=== PATIENT | male | born 1965 | race African-American/Black ===

== ENCOUNTER 2023-05-27 13:15 | Inpatient (IN) | payer SELFPAY ==
[2023-05-27] VITALS (7 sets, daily range): BP systolic 132–151; BP diastolic 81–88; PULSE 70–82; TEMP 97.9–98.3
[~2023-05-27] VITALS: Ht 175.3 cm; Wt 72.7 kg
[2023-05-27 14:03] LABS: BASO % 0.4 % (0.0-2.0); EOS # 0.3 K/mm3 (0.0-0.7); EOS % 3.1 % (0.0-4.0); GRAN # 8.3 K/mm3 (1.4-6.5); GRAN % 79.4 % (42.2-75.2); LYMPH # 1.3 K/mm3 (1.2-3.4); LYMPH % 12.1 % (20.0-51.0); MEAN CELL VOLUME 83 fl (80.0-100.0); MEAN CORPUSCULAR HGB CONC 30 g/dl (33.0-37.0); MEAN PLATELET VOLUME 9.4 fl (7.4-10.4); MONO # 0.5 K/mm3 (0.1-0.6); MONO % 4.6 % (1.7-9.3); PLATELET COUNT 338 K/mm3 (130-400); RED BLOOD COUNT 2.63 M/mm3 (4.20-5.60); REDCELL DISTRIBUTION WIDTH-CV 15.9 % (11.5-14.5)
[2023-05-27 14:06] LABS: HEMATOCRIT 21.9 % (42.0-52.0); HEMOGLOBIN 6.6 g/dl (13.5-18.0); MEAN CORPUSCULAR HEMOGLOBIN 25 pg (27-31)
[2023-05-27 14:21] LABS: ALBUMIN 2.9 gm/dL (3.5-5.0); BILIRUBIN,TOTAL 0.4 mg/dL (0.2-1.2); C-REACTIVE PROTEIN 5.83 mg/dL (0.00-0.50); CALCIUM 7.7 mg/dL (8.4-10.2); CREATININE, serum 6.15 mg/dL (0.72-1.25); TOTAL PROTEIN 8.1 gm/dL (6.2-8.1)
[2023-05-27 14:25] LABS: POTASSIUM 6.2 mmol/L (3.5-4.5)
[2023-05-27] MEDS ORDERED: NS 1,000 ML IV ONE (14:30)
[2023-05-27 14:46] LABS: COLLECTION METHOD CLEAN CATCH
[2023-05-27 15:05] LABS: PH 5.5 (5.0-8.5); URINE APPEARANCE Cloudy (CLEAR/HAZY); URINE BLOOD 1+ (NEGATIVE); URINE COLOR YELLOW (YELLOW); URINE GLUCOSE Negative (NEGATIVE); URINE KETONE Negative (NEGATIVE); URINE NITRATE Negative (NEGATIVE); URINE PROTEIN(semi-quant) Negative (BEGATIVE); URINE UROBILINOGEN 0.2 E.U/dL (0.2-1.0)
[2023-05-27 15:06] LABS: URINE BACTERIA Moderate /hpf (NONE SEEN)
[2023-05-27] MEDS ORDERED: Patiromer 8.4 G Oral Susp **** subs to Sodium Zirconium Cyclosilicate 10 G Oral Susp PO SCH (15:19)
[2023-05-27] MEDS ORDERED: Sodium Zirconium Cyclosilicate for Oral Susp 10 GM PACKET PO SCH (15:22)
[2023-05-27] MEDS ORDERED: Dextrose 50% Water 25 GM/50 ML SYRINGE IV ONE (15:30)
[2023-05-27] MEDS ORDERED: cefTRIAXone 1 G in Water For Injection,Sterile 10 ML IV ONE (15:30)
[2023-05-27] MEDS ORDERED: Insulin Regular Human (NovoLIN R/HumuLIN R) IV ONE (15:30)
[2023-05-27] MEDS ORDERED: Sodium Bicarbonate/Water,Steri 1,150 ML IV SCH (16:00)
[2023-05-27 16:48] LABS: HIV 1/2 Antibodies Non-Reactive; HIV-1p24 Antigen Non-Reactive
[2023-05-27] MEDS ORDERED: Dextrose (Glucose) 15 GM (4 x 3.75 GM) Chewable TABLET PACK PO PRN (17:15)
[2023-05-27] MEDS ORDERED: Glucagon 1 MG VIAL IM PRN (17:15)
[2023-05-27] MEDS ORDERED: Dextrose 50% Water 25 GM/50 ML SYRINGE IV PRN (17:15)
[2023-05-27] MEDS ORDERED: Lidocaine 2% (20 MG/ML) 20 ML UROJET UR ONE (17:18)
[2023-05-27] MEDS ORDERED: Ondansetron 4 MG/2 ML VIAL IV PRN (19:00)
[2023-05-27] MEDS ORDERED: hydrALAZINE 25 MG TAB PO PRN (19:00)
[2023-05-27] MEDS ORDERED: *Potassium Replacement Protocol MC SCH (19:00)
[2023-05-27] MEDS ORDERED: Docusate Sodium 100 MG CAP PO PRN (19:00)
[2023-05-27] MEDS ORDERED: Acetaminophen 325 MG TAB PO PRN (19:00)
[2023-05-27] MEDS ORDERED: Melatonin 3 MG TAB PO PRN (19:00)
[2023-05-27] MEDS ORDERED: Insulin Aspart (NovoLOG) SQ SCH (20:00)
--- NOTE | 2023-05-27 21:53 | NUR ---
THE PATIENT IS RESTING IN BED DURING THE NURSING PHYSICAL ASSESSMENT. THE PATIENT DENIES PAIN OR DISCOMFORT. THE PATIENT HAS A EVANS WITH RED URINE NOTED. THE IS AT BEDSIDE AND BOTH THE PATIENT AND THE SPOUSE ARE ANSWERING QUESTIONS IN [place], THE PATIENT MORE THAN THE SPOUSE. AN INVENTORY CONTROL/SHIPPING RECEIVING IS AVAILABLE. BLOOD TRANSFUSION DISCUSSED AND THE PATIENT RESPONDED WITH UNDERSTANDING. THE CONSENT HAS ALREADY BEEN SIGNED WITH A DAYSHIFT NURSE. NO S/S OF DISTRESS NOTED. CALL LIGHT WITHIN REACH, BED IN LOW POSITION, PERSONAL BELONGINGS WITHIN REACH.
--- NOTE | 2023-05-27 22:05 | NUR ---
8:40 PM THE BLOOD TRANSFUSION WAS STARTED AT A RATE OF 60 ML PER HOUR. THE NURSE STAYED IN THE ROOM FOR THE FIRST 15 MINUTES THEN INCREASED THE RATE TO 150 ML PER HOUR. VITAL SIGNS STABLE AND NO S/S OF A TRANSFUSION REACTION NOTED. SODIUM BICARB IVF ON HOLD DURING THE TRANSFUSION. CALL LIGHT WITHIN REACH. S/S REVIEWED. WILL MONITOR.
[2023-05-27 22:49] LABS: HEPATITIS B SURFACE ANTIGEN Negative (Negative)
[2023-05-28] VITALS (12 sets, daily range): BP systolic 123–159; BP diastolic 75–89; PULSE 63–95; TEMP 97.6–98.3
[2023-05-28 00:44] LABS: HEMATOCRIT 26.8 % (42.0-52.0); HEMOGLOBIN 8.5 g/dl (13.5-18.0)
[2023-05-28 01:00] LABS: CALCIUM 7.2 mg/dL (8.4-10.2); CREATININE, serum 5.57 mg/dL (0.72-1.25); POTASSIUM 4.4 mmol/L (3.5-4.5)
--- NOTE | 2023-05-28 02:58 | NUR ---
LAB CALLED AT 01:03 WITH A SERUM CO2 LEVEL OF 12. GAIL COATES NOTIFIED AT 01:05. AT THIS TIME GAIL COATES WAS UPDATED ON THE PTS CURRENT POTASSIUM LEVEL OF 4.4 DOWN FROM 6.2 AND Hgb 8.5 UP FROM 6.6 AFTER 1 UNIT OF PRBCs. WILL MONITOR.
[2023-05-28 07:17] LABS: BASO % 0.3 % (0.0-2.0); EOS # 0.1 K/mm3 (0.0-0.7); GRAN # 8.4 K/mm3 (1.4-6.5); GRAN % 83.1 % (42.2-75.2); LYMPH # 1.1 K/mm3 (1.2-3.4); LYMPH % 11.3 % (20.0-51.0); MEAN CELL VOLUME 79 fl (80.0-100.0); MEAN CORPUSCULAR HGB CONC 33 g/dl (33.0-37.0); MEAN PLATELET VOLUME 9.6 fl (7.4-10.4); MONO # 0.4 K/mm3 (0.1-0.6); MONO % 3.9 % (1.7-9.3); PLATELET COUNT 399 K/mm3 (130-400); RED BLOOD COUNT 3.25 M/mm3 (4.20-5.60); REDCELL DISTRIBUTION WIDTH-CV 15.8 % (11.5-14.5)
[2023-05-28 07:20] LABS: HEMATOCRIT 25.7 % (42.0-52.0); HEMOGLOBIN 8.4 g/dl (13.5-18.0); MEAN CORPUSCULAR HEMOGLOBIN 26 pg (27-31)
[2023-05-28 07:41] LABS: ALBUMIN 2.5 gm/dL (3.5-5.0); CALCIUM 7.4 mg/dL (8.4-10.2); CREATININE, serum 5.11 mg/dL (0.72-1.25); MAGNESIUM 1.2 mg/dL (1.6-2.6); PHOSPHOROUS 5.3 mg/dL (2.3-4.7); POTASSIUM 4.9 mmol/L (3.5-4.5)
--- NOTE | 2023-05-28 08:00 | NUR ---
PT LAYING IN BED UPON ENTERING, AT BEDSIDE. ASSESSMENT DONE, MEDS GIVEN PER ORDER. RIGHT AC INT PATENT. PCT TOLD THIS NURSE THAT PT REPORTED PAIN, WHEN ASKED PT STATED THAT IT WAS DISCOMFORT FOR THE EVANS AND WOULD LIKE TYLENOL, PRN GIVEN. EVANS PATENT WITH PEACH COLORED URINE, BLOOD CLOTS AND SOME SEDIMENT NOTED. FLU SHOT GIVEN TO LEFT DELTOID, DIDNT SCAN DUE TO THROWING IN SHARPS BEFORE SCANNING. PHARMACY CALLED AND TOLD THIS NURSE THAT I COULD USE A SYRINGE IN THEMED ROOM FOR CHARTING INFORMATION. CHARGE NURSE NOTIFIED AND GAVE THIS NURSE SAME INSTRUCTIONS. PT DENIES NEEDS AT THIS TIME. BED IN LOWEST POSITION, CALL LIGHT IN REACH.
[2023-05-28] MEDS ORDERED: Influenza Virus Vaccine, Quad '23-24 (6 MOS+) 0.5 ML SYRINGE IM SCH (09:00)
--- NOTE | 2023-05-28 10:41 | NUR ---
ATTEMPTED TO CALL UROLOGY CONSULT. ON 2ND TRY ANSWERED AND TOLD THIS NURSE THAT PROVIDER IS CURRENTLY ON A CALL AND WILL CALL THIS NURSE BACK
--- NOTE | 2023-05-28 10:51 | NUR ---
UROLOGY CONSULT CALLED TO DR TA
--- NOTE | 2023-05-28 10:52 | NUR ---
[facility] CALLED TO DR CORTES. PT ON BICARB PEPPER SANCHEZ AND HOSPITALIST TOLD THIS NURSE TO CONTINUE TO MONITOR.
[2023-05-28] MEDS ORDERED: Sodium Bicarbonate/Water,Steri 1,150 ML IV SCH (11:00)
--- NOTE | 2023-05-28 12:13 | NUR ---
DR CORTES CALLED AND NOTIFIED THAT PT DOESNT HAVE AN ORDER FOR VTE CURRENTLY. HOSPITALIST GAVE THIS NURSE A VERBAL ORDER FOR "LOVENOX 40 SUBQ". THIS NURSE REPEATED ORDER AND HOSPITALIST STATES THAT THIS IS CORRECT. SHORTLY AFTER HOSPITALIST CALLED THIS NURSE AND STATED THAT HE WOULD PREFER PT HAS HEPARIN AND THE ORDER WILL BE PUT IN BY HIM. THIS NURSE VERBALIZED UNDERSTANDING
[2023-05-28] MEDS ORDERED: Heparin 5,000 UNITS/ML 1 ML VIAL SQ SCH (12:14)
[2023-05-28] MEDS ORDERED: Finasteride 5 MG TAB PO SCH (12:15)
[2023-05-28] MEDS ORDERED: cefTRIAXone 1 G in Water For Injection,Sterile 10 ML IV SCH (16:00)
--- NOTE | 2023-05-28 16:39 | NUR ---
SW met with patient to complete intake. Patient provides he lives in [place] with spouse Chelsie [phone]. Patient is independent with ADLs, does not utilize DME, and does not utilize HH services at this time. PCP is Dr. Fraga, and pharmacy is [facility]. Patient does not have anyone appointed as DPOA/HC. Patient plans to return to his home up on DC. SW will continue to follow. DC plan: home
--- NOTE | 2023-05-28 21:40 | NUR ---
Patient resting in bed with daughter at bedside. Denies any pain or needs at this time. IV in right AC infusing with no complications. Call light and personal items in reach. Bed in low position.
[2023-05-29] VITALS (12 sets, daily range): BP systolic 122–135; BP diastolic 79–86; PULSE 72–90; TEMP 97.6–98.2
--- NOTE | 2023-05-29 06:10 | NUR ---
Patient getting back in bed from bathroom. States he has pain where his catheter rating it a 5/10, PRN pain meds given. No changes over night. Call light and personal items in reach. Bed in low position and bed alarm on.
[2023-05-29] MEDS ORDERED: Insulin Aspart (NovoLOG) SQ SCH (08:00)
[2023-05-29 08:10] LABS: BASO # 0.1 K/mm3 (0.0-0.2); BASO % 0.6 % (0.0-2.0); EOS # 0.4 K/mm3 (0.0-0.7); GRAN % 66.5 % (42.2-75.2); LYMPH # 2.1 K/mm3 (1.2-3.4); LYMPH % 22.8 % (20.0-51.0); MEAN CELL VOLUME 78 fl (80.0-100.0); MEAN CORPUSCULAR HGB CONC 33 g/dl (33.0-37.0); MEAN PLATELET VOLUME 9.3 fl (7.4-10.4); MONO # 0.5 K/mm3 (0.1-0.6); MONO % 5.7 % (1.7-9.3); PLATELET COUNT 431 K/mm3 (130-400); RED BLOOD COUNT 3.55 M/mm3 (4.20-5.60); REDCELL DISTRIBUTION WIDTH-CV 15.7 % (11.5-14.5)
[2023-05-29 08:19] LABS: HEMATOCRIT 27.8 % (42.0-52.0); HEMOGLOBIN 9.2 g/dl (13.5-18.0); MEAN CORPUSCULAR HEMOGLOBIN 26 pg (27-31)
[2023-05-29 08:30] LABS: ALBUMIN 2.6 gm/dL (3.5-5.0); CALCIUM 7.1 mg/dL (8.4-10.2); CREATININE, serum 4.35 mg/dL (0.72-1.25); MAGNESIUM 1.2 mg/dL (1.6-2.6); PHOSPHOROUS 4.9 mg/dL (2.3-4.7); POTASSIUM 3.9 mmol/L (3.5-4.5)
--- NOTE | 2023-05-29 09:10 | NUR ---
PT LAYING IN BED UPON ENTERING. ASSESSMENT DONE, MEDS GIVEN PER ORDER. EVANS IN PLACE AND DRAINING PEACH COLORED URINE WITHOUT COMPLICATIONS. PT DENIES PAIN BUT REPORTS DISCOMFORT WHEN FEELING THE URGE TO URINATE. BICARB RUNNING PER ORDER IN RIGHT AC PER ORDER WITHOUT COMPLICATIONS. PT DENIES NEEDS AT THIS TIME. BED IN LOWEST POSITION, CALL LIGHT IN REACH
[2023-05-29] MEDS ORDERED: Magnesium Sulfate 4% 50 ML IV ONE (12:30)
--- NOTE | 2023-05-29 19:57 | NUR ---
REPORT GIVEN TO LORIN CARBAJAL
--- NOTE | 2023-05-29 21:40 | NUR ---
Patient resting in bed with family at bedside. Denies any pain or needs at this time. Lotion applied to legs. Assessment complete. IV in right AC flushes easily with no complications. Simmons draining to dependent drainage. Call light and personal items in reach. Bed in low positon.
[2023-05-30] VITALS (7 sets, daily range): BP systolic 121–134; BP diastolic 78–83; PULSE 68–86; TEMP 97.5–98.3
--- NOTE | 2023-05-30 06:15 | NUR ---
Patient resting in bed. Rates his pain at 5/10, prn pain meds given. Denies any other needs at this time. No changes over night. Call light and personal items in reach. Bed in low position and bed alarm on.
[2023-05-30 06:57] LABS: BASO # 0.1 K/mm3 (0.0-0.2); BASO % 0.8 % (0.0-2.0); EOS # 0.5 K/mm3 (0.0-0.7); EOS % 6.5 % (0.0-4.0); GRAN # 5.1 K/mm3 (1.4-6.5); GRAN % 65.1 % (42.2-75.2); LYMPH # 1.7 K/mm3 (1.2-3.4); LYMPH % 21.4 % (20.0-51.0); MEAN CELL VOLUME 79 fl (80.0-100.0); MEAN CORPUSCULAR HGB CONC 33 g/dl (33.0-37.0); MEAN PLATELET VOLUME 9.5 fl (7.4-10.4); MONO # 0.5 K/mm3 (0.1-0.6); MONO % 5.8 % (1.7-9.3); PLATELET COUNT 362 K/mm3 (130-400); RED BLOOD COUNT 3.24 M/mm3 (4.20-5.60); REDCELL DISTRIBUTION WIDTH-CV 15.4 % (11.5-14.5)
[2023-05-30 06:58] LABS: HEMATOCRIT 25.5 % (42.0-52.0); HEMOGLOBIN 8.5 g/dl (13.5-18.0); MEAN CORPUSCULAR HEMOGLOBIN 26 pg (27-31)
[2023-05-30 07:20] LABS: ALBUMIN 2.5 gm/dL (3.5-5.0); CALCIUM 7.2 mg/dL (8.4-10.2); CREATININE, serum 4.13 mg/dL (0.72-1.25); MAGNESIUM 1.6 mg/dL (1.6-2.6); PHOSPHOROUS 5.5 mg/dL (2.3-4.7); POTASSIUM 4.2 mmol/L (3.5-4.5)
[2023-05-30] MEDS ORDERED: FLOMAX 0.40.4 MG/CAP PO (11:19)
[2023-05-30] MEDS ORDERED: PROSCAR 5MG5 MG PO (11:19)
--- NOTE | 2023-05-30 13:40 | NUR ---
discharge instructions given.patient's mother and daughter were at bedside. patient was instructed on the importance of maintaining and going to his appointments. iv removed. call light within reach. instructed to call when patient was ready to go.
[2023-05-31 19:22] LABS: C-ANCA 16 U/mL (0-99)
== END 2023-05-30 14:15 | disposition home or self-care (01) | DRG 683 ==
LOC: COL.ER 13:15 → MEDICAL 15:15 → EDBEDREQ 16:46 → MEDICAL 21:00
PROVIDERS: Internal Medicine Nephrology; Nurse Practitioner; Physician Assistant; ADMIT Internal Medicine
PROC: 30233N1 Transfusion of Nonautologous Red Blood Cells into Peripheral Vein, Percutaneous Approach (ICD-10-PCS; principal; 2023-05-27)
DX: N17.9 Acute kidney failure, unspecified (principal); E44.0 Moderate protein-calorie malnutrition; E87.20 Acidosis, unspecified; N13.8 Other obstructive and reflux uropathy; N40.1 Benign prostatic hyperplasia with lower urinary tract symptoms; E87.5 Hyperkalemia; E78.5 Hyperlipidemia, unspecified; N13.6 Pyonephrosis; I12.9 Hypertensive chronic kidney disease with stage 1 through stage 4 chronic kidney disease, or unspecified chronic kidney disease; E11.22 Type 2 diabetes mellitus with diabetic chronic kidney disease; N18.9 Chronic kidney disease, unspecified; D63.1 Anemia in chronic kidney disease; R31.9 Hematuria, unspecified; Z68.23 Body mass index [BMI] 23.0-23.9, adult; Z23 Encounter for immunization
CPT/HCPCS: A4314; A9270; J0696; J1644; J1815; J3475; J7030; P9016; Q3014